=== PATIENT | female | born 1985 | race Caucasian/White ===

== ENCOUNTER 2017-04-12 07:10 | Inpatient (IN) | payer OTHER ==
[2017-04-12] MEDS: DEXTROSE 5%-LACTATED RINGERS 1,000 ML IV SCH ×2 (07:45→14:59)
[2017-04-12] MEDS ORDERED: BUTORPHANOL TARTRATE 1 MG/ML VIAL IVPB PRN (08:11)
--- NOTE | 2017-04-12 08:21 | HP ---
Past Medical History - Primary Care Physician PCP:: Eber Mauricio - Admission Chief Complaint: 40.5 weeks, post date for cervidil induction History of Present Illness: 32 yo f 40.5 weeks, admitted for cervidil induction, cx 2 cm 50 vx -2 mi, fhr cat 1, irregular contraction, not felt by patient, rba to induction discussed History Source: Patient Limitations to Obtaining History: No Limitations - Past Medical History ...: 2 ...Para: 0 ...Spon : 1 ... Weeks Gestation by Dates: 41.5 ...EDC by Sono: 04/07/17 - Past Surgical History Hx Myomectomy: No Hx Transabdominal Cerclage: No - Smoking History Smoking history: Never smoked - Alcohol/Substance Use Hx Alcohol Use: No - Social History Usual Living Arrangement: Yes: With Spouse History of Recent Travel: No Home Medications - Allergies Allergies/Adverse Reactions: Allergies Allergy/AdvReac Type Severity Reaction Status Date / Time No Known Allergies Allergy Verified 04/12/17 08:04 - Home Medications Home Medications: Ambulatory Orders Vit/Iron Fumarate/FA [ Tablet] 1 each PO DAILY 08/29/16 Ferrous Sulfate [Feosol] 325 mg PO DAILY 04/10/17 Review of Systems - Review of Systems Constitutional: reports: No Symptoms Eyes: reports: No Symptoms HENT: reports: No Symptoms Neck: reports: No Symptoms Cardiovascular: reports: No Symptoms Respiratory: reports: No Symptoms Gastrointestinal: reports: No Symptoms Genitourinary: reports: No Symptoms Breasts: reports: No Symptoms Reported Musculoskeletal: reports: No Symptoms Neurological: reports: No Symptoms Endocrine: reports: No Symptoms Hematology/Lymphatic: reports: No Symptoms Psychiatric: reports: No Symptoms Physical Exam - Maternity Constitutional: Yes: Well Nourished, No Distress, Calm Eyes: Yes: WNL, Conjunctiva Clear, EOM Intact HENT: Yes: WNL, Atraumatic, Normocephalic Neck: Yes: WNL, Supple, Trachea Midline Cardiovascular: Yes: WNL, Regular Rate and Rhythm Breast(s): Yes: WNL - Abdominal Exam/OB Fundal Height: 40 Number of Fetuses: Single Presentation: Vertex Contractions: Yes Regularity: Irregular Intensity: Unaware Monitor Mode: External Heart Rate Location: [facility] Category: I Accelerations: Uniform Decelerations: None - Vaginal Exam/OB Vaginal Bleediing: No Speculum Exam: No Dilatation (cm): 2 cm Effacement (%): 50 Amniotic Membrane Status: Intact Presentation: Vertex/Position Station: -2 - Physical Exam Musculoskeletal: Yes: Back Pain Edema: Yes Edema: LLE: Trace, RLE: Trace Integumentary: Yes: WNL Deep Tendon Reflex Grade: Normal +2 Psychiatric: Yes: WNL Hemorrhage Risk Assessment - Risk Factors Medium Risk Factors: Yes: None High Risk Factors: Yes: None Risk Score: 1 Risk Level: Medium Risk Problem List - Problems (1) Postmaturity , 40-42 weeks gestation Code(s): O48.0 - POST-TERM (2) Elective induction of labor planned Code(s): YYD5828 - Assessment/Plan admit, cervidin induction, rba discussed
[2017-04-12] MEDS ORDERED: PROMETHAZINE HCL 25 MG/1 ML VIAL IVPUSH ONE (08:23)
[2017-04-12 08:28] VITALS: BMI 31.8
[2017-04-12 08:42] LABS: BASOPHIL 0.5 % (0-2.0); EOSINOPHIL 0.9 % (0-4.5); MCH 28.9 pg (25.7-33.7); MCHC 33.8 g/dl (32.0-36.0); MEAN CELL VOLUME 85.7 fl (80-96); MEAN PLT VOLUME 7.5 fl (7.5-11.1); NEUTROPHILS 63.6 % (42.8-82.8); PLATELET COUNT 179 K/MM3 (134-434); RDW 14.3 % (11.6-15.6); WHITE BLOOD COUNT 11.5 K/mm3 (4.0-10.0)
[2017-04-12 09:02] LABS: INR 0.9 (0.82-1.09); PROTHROMBIN TIME (PATIENT) 10.2 SEC (9.98-11.88)
[2017-04-12 09:05] LABS: ACTIVATED PTT 27.1 SECONDS (26.9-34.4)
[2017-04-12 09:23] LABS: ANION GAP 11 (8-16); CALCIUM 8.4 mg/dL (8.5-10.1); CO2 21 mmol/L (21-32); CREATININE 0.5 mg/dL (0.55-1.02); GLUCOSE,RANDOM 105 mg/dL (74-106)
[2017-04-12] MEDS ORDERED: DINOPROSTONE 10 MG VAGINAL SUPPOSITORY VG ONE (09:30)
[2017-04-12] MEDS ORDERED: ACETAMINOPHEN 325 MG TABLET (FP) PO PRN ×2 (23:37→23:44)
[2017-04-12] MEDS ORDERED: METHYLERGONOVINE MALEATE 0.2 MG/1 ML AMP IM PRN (23:37)
[2017-04-12] MEDS ORDERED: BENZOCAINE 20% 57 GM BOTTLE TP PRN (23:37)
[2017-04-12] MEDS ORDERED: BISACODYL 10 MG SUPP.RECT RC PRN (23:37)
[2017-04-12] MEDS ORDERED: WITCH HAZEL 50% (TUCKS) 40 PAD/JAR PAD TP PRN (23:37)
[2017-04-12] MEDS ORDERED: IBUPROFEN 600 MG TABLET (FP) PO PRN (23:37)
[2017-04-12] MEDS ORDERED: BENZOCAINE 28 GM HEMORRHOIDAL OINTMENT TP PRN (23:37)
[2017-04-12] MEDS ORDERED: oxyCODONE HCL 5 MG TABLET PO PRN (23:44)
[2017-04-12] MEDS ORDERED: D5W-LR W/ 20 UNITS OXYTOCIN 1,000 ML IV SCH (23:45)
[2017-04-13 08:06] LABS: MCH 28.7 pg (25.7-33.7); MCHC 33.6 g/dl (32.0-36.0); MEAN CELL VOLUME 85.5 fl (80-96); MEAN PLT VOLUME 7.5 fl (7.5-11.1); PLATELET COUNT 193 K/MM3 (134-434); RDW 14.5 % (11.6-15.6); WHITE BLOOD COUNT 20.9 K/mm3 (4.0-10.0)
[2017-04-13] MEDS ORDERED: DIPHTH,PERTUSS(ACELL),TET 0.5 ML DISP.SYRIN IM ONE (10:00)
[2017-04-13] MEDS: FERROUS SO4 325 MG TABLET (FP) PO SCH ×2 (10:08→21:22)
[2017-04-13] MEDS: PRENATAL VITAMINS W/ FOLIC ACID TABLET (FP) PO SCH (10:08)
[2017-04-13 10:20] LABS: MYELOCYTE 1 % (0-2); PLATELET ESTIMATE ADEQUATE (NORMAL); TOTAL CELLS COUNTED 100
[2017-04-13] MEDS: CEFAZOLIN (PRE-DOCKED) 50 ML IVPB SCH ×2 (11:52→17:32)
--- NOTE | 2017-04-13 12:12 | PN ---
Post Progress Note - Subjective Subjective: hr to 100, no fever slight white count and started on abx Post Day: 1 Type of Delivery: Primary C/S Vital Signs: Vital Signs Temperature 98.5 F 04/13/17 08:50 Pulse Rate 102 H 04/13/17 08:50 Respiratory Rate 21 04/13/17 08:50 Blood Pressure 125/72 04/13/17 08:50 O2 Sat by Pulse Oximetry (%) 100 04/13/17 00:30 Breast Exam: Yes: Soft Uterus: Yes: Fundus Firm Incision: Yes: Dressing dry and intact Abdomen/GI: Yes: Abdomen soft Lochia: Yes: Rubra Lochia, amount: Small Extremities: Yes: Calves non-tender Perineum: Yes: Intact - Labs Labs: CBC WBC 20.9 K/mm3 (4.0-10.0) H D 04/13/17 07:45 RBC 4.16 M/mm3 (3.60-5.2) 04/13/17 07:45 Hgb 11.9 GM/dL (10.7-15.3) 04/13/17 07:45 Hct 35.6 % (32.4-45.2) 04/13/17 07:45 MCV 85.5 fl (80-96) 04/13/17 07:45 MCH 28.7 pg (25.7-33.7) 04/13/17 07:45 MCHC 33.6 g/dl (32.0-36.0) 04/13/17 07:45 RDW 14.5 % (11.6-15.6) 04/13/17 07:45 Plt Count 193 K/MM3 (134-434) 04/13/17 07:45 MPV 7.5 fl (7.5-11.1) 04/13/17 07:45 Total Counted 100 04/13/17 07:45 Neutrophils % No Result Required. 04/13/17 07:45 Neutrophils % (Manual) 85 % (42.8-82.8) H 04/13/17 07:45 Band Neuts % (Manual) 1 % (0-10) 04/13/17 07:45 Lymphocytes % No Result Required. 04/13/17 07:45 Lymphocytes % (Manual) 10 % (8-40) 04/13/17 07:45 Monocytes % 10.8 % (3.8-10.2) H 04/12/17 08:30 Monocytes % (Manual) 3 % (3.8-10.2) L 04/13/17 07:45 Eosinophils % 0.9 % (0-4.5) 04/12/17 08:30 Basophils % 0.5 % (0-2.0) 04/12/17 08:30 Myelocytes % (Man) 1 % (0-2) 04/13/17 07:45 Platelet Estimate Adequate (NORMAL) 04/13/17 07:45 Assessment/Plan started on abx oob reg diet watch for temps
[2017-04-13] MEDS ORDERED: SENNOSIDES/DOCUSATE COMBO (SENNA PLUS) TABLET (UD) PO PRN (22:00)
[2017-04-14] MEDS: CEFAZOLIN (PRE-DOCKED) 50 ML IVPB SCH ×2 (01:47→09:54)
[2017-04-14 09:03] LABS: BASOPHIL 0.6 % (0-2.0); EOSINOPHIL 0.8 % (0-4.5); MCH 28.8 pg (25.7-33.7); MCHC 33.1 g/dl (32.0-36.0); MEAN CELL VOLUME 87.1 fl (80-96); MEAN PLT VOLUME 7.3 fl (7.5-11.1); NEUTROPHILS 59.7 % (42.8-82.8); PLATELET COUNT 205 K/MM3 (134-434); RDW 14.4 % (11.6-15.6); WHITE BLOOD COUNT 16.8 K/mm3 (4.0-10.0)
[2017-04-14] MEDS: FERROUS SO4 325 MG TABLET (FP) PO SCH (09:53)
[2017-04-14] MEDS: PRENATAL VITAMINS W/ FOLIC ACID TABLET (FP) PO SCH (09:53)
[2017-04-14] MEDS ORDERED: AMOX TR/POT CLAV 875MG/125MG TABLETS (FP) PO ONE (11:30)
[2017-04-14 14:04] VITALS: BP 115/74; PULSE 99; TEMP 98.8
--- NOTE | 2017-04-14 15:55 | DS ---
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: Vital Signs Temperature 98.8 F 04/14/17 14:00 Pulse Rate 99 H 04/14/17 14:00 Respiratory Rate 20 04/14/17 14:00 Blood Pressure 115/74 04/14/17 14:00 O2 Sat by Pulse Oximetry (%) 100 04/13/17 00:30 Labs: CBC, BMP 04/14/17 08:45 04/12/17 08:30 Delivery - Delivery Type of Anesthesia: Local Episiotomy/Laceration: 2nd degree EBL (cc): 300 Delivery, Single - Stages of Labor Date 1st Stage Initiatied: 04/12/17 Time 1st Stage Initiated: 08:00 Date 2nd Stage Initiated: 04/12/17 Time 2nd Stage Initiated: 22:45 Date of Delivery: 04/12/17 Time of Delivery: 23:12 Time Placenta Delivered: 23:25 - 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: No Infant Gender: Male Weight: 7 lb 14 oz Position: Left, OA Total Hours ROM (Hrs/Mins): 42m - 1 Minute Total Score: 9 5 Minutes Total Score: 9 - Feeding Plan Initial Plan: Elected not to breastfeed exclusively throughout hospitalization Discharge Summary Reason For Visit: INDUCTION OF LABOR Current Active Problems Elective induction of labor planned (Acute) Postmaturity , 40-42 weeks gestation (Acute) Condition: Good - Instructions Diet, Activity, Other Instructions: regular diet, if fever, pain, bleeding call Referrals: Eber Mauricio MD [Staff Physician] - Disposition: HOME - Home Medications Comprehensive Discharge Medication List: Ambulatory Orders Vit/Iron Fumarate/FA [ Tablet] 1 each PO DAILY 08/29/16 Ferrous Sulfate [Feosol] 325 mg PO DAILY 04/10/17 Amoxicillin/Potassium Clav [Augmentin 875-125 Tablet] 1 each PO BID #10 tablet 04/14/17 Ibuprofen [Motrin -] 600 mg PO TID #21 tablet 04/14/17
== END 2017-04-14 17:55 | disposition home or self-care (01) | DRG 560 ==
LOC: JLDR 07:10 → J3W 04-13 01:38
PROVIDERS: ADMIT Obstetrics & Gynecology; ATTEND Obstetrics & Gynecology
PROC: 10E0XZZ Delivery of Products of Conception, External Approach (ICD-10-PCS; principal; 2017-04-12)
PROC: 0W8NXZZ Division of Female Perineum, External Approach (ICD-10-PCS; 2017-04-12)
PROC: 0KQM0ZZ Repair Perineum Muscle, Open Approach (ICD-10-PCS; 2017-04-12)
PROC: 3E0P7VZ Introduction of Hormone into Female Reproductive, Via Natural or Artificial Opening (ICD-10-PCS; 2017-04-12)
DX: O70.1 Second degree perineal laceration during delivery (principal); O48.0 Post-term pregnancy; Z3A.40 40 weeks gestation of pregnancy; Z37.0 Single live birth
CPT/HCPCS: 36415; 59409; 80048; 85025; 85610; 85730; 86593; 86850; 86900; 86901; 87040; 87086; 90715